=== PATIENT | female | born 1950 | race Caucasian/White ===

== ENCOUNTER 2018-12-07 22:04 | Emergency (ER) | payer MEDICARE, MEDICAID, OTHER ==
[2018-12-08] MEDS: ONDANSETRON (ODT) 4 MG TAB ODT (01:24)
== END 2018-12-08 01:30 | disposition home or self-care (01) ==
LOC: FTE 12-08 01:30
DX: J02.9 Acute pharyngitis, unspecified (principal); I10 Essential (primary) hypertension; J04.0 Acute laryngitis
CPT/HCPCS: 87400; 87880; 99283